=== PATIENT | male | born 1945 | race American Indian/Alaskan Native ===

== ENCOUNTER 2025-02-23 09:38 | Emergency (ER) | payer OTHER ==
[~2025-02-23] VITALS: Ht 172.7 cm; Wt 48.2 kg
[2025-02-23 09:51] LABS: MCH 30.9 PG (25.7-32.2); MCHC 33.6 g/dL (32.3-36.5); MCV 92.0 fL (79.0-92.2); RBC 3.98 M/uL (4.63-6.08)
[2025-02-23] MEDS ORDERED: SODIUM CHLORIDE 0.9% 500 ML IV PRN ×2 (10:00→10:30)
[2025-02-23 10:10] LABS: BANDS, MANUAL DIFF 12; LYMPHOCYTES, MANUAL DIFF 8; MONOCYTES, MANUAL DIFF 7; NEUTROPHILS, MANUAL DIFF 73
[2025-02-23 10:20] LABS: ALT (SGPT) 16.0 U/L (14-59); AST (SGOT) 25.0 U/L (15-37); GLOMERULAR FILTRATION RATE,EST 42.0 mL/min (>60); PROTEIN, TOTAL 7.2 g/dL (6.4-8.2); UREA NITROGEN 20.0 mg/dL (7-18)
[2025-02-23] MEDS ORDERED: HEParin SOD (PORCINE) 5,000 UNIT/ML SYR IV PRN ×3 (10:30)
[2025-02-23] MEDS ORDERED: HEPARIN SOD,PORK IN 0.45% NACL 500 ML IV SCH (10:30)
[2025-02-23] MEDS ORDERED: HEParin SOD (PORCINE) 5,000 UNIT/ML SYR IV ONE (10:30)
[2025-02-23 10:46] LABS: INR 1.17 (0.80-1.30); PROTIME 14.1 Sec (11.2-14.2)
[2025-02-23 11:11] LABS: ALCOHOL, MEDICAL <3 ng/dL (<3); TSH, 3RD GENERATION 1.213 uIU/mL (0.358-3.740)
[2025-02-23] MEDS ORDERED: ASPIRIN325 MG PO (11:30)
[2025-02-23] MEDS ORDERED: HYDROCHLOROTH12.5 M1 PO (11:31)
[2025-02-23] MEDS ORDERED: LISINOPRIL20 MG PO (11:31)
[2025-02-23] MEDS ORDERED: VITAMIN D350 MC4 PO (11:32)
[2025-02-23 13:12] VITALS: BP 88/59
--- NOTE | 2025-02-24 20:59 | EKG ---
[facility] [address] [facility] [place] [address] Signed Atrial fibrillation with rapid ventricular response with premature ventricular or aberrantly conducted complexes Nonspecific ST abnormality Abnormal QRS-T angle, consider primary T wave abnormality Abnormal ECG No previous ECGs available Confirmed by Stu Abdullahi MD () on 02/24/2025 8:59:18 PM Electronically Signed By: STU ABDULLAHI MD 02/24/252058 PATIENT NAME: LILA MARIE Electrocardiogram DATE OF : 49 PHYSICIAN: STU ABDULLAHI MD REPORT #: [id number] REPORT IS CONFIDENTIAL AND NOT TO BE RELEASED WITHOUT AUTHORIZATION
--- NOTE | 2025-02-24 21:00 | EKG ---
[facility] [address] [facility] [place] [address] Signed Normal sinus rhythm Rightward axis Borderline ECG When compared with ECG of 23-FEB-2025 09:56, Sinus rhythm has replaced Atrial fibrillation Vent. rate has decreased BY 72 BPM Non-specific change in ST segment in Inferior leads ST no longer depressed in Lateral leads Nonspecific T wave abnormality has replaced inverted T waves in Inferior leads Confirmed by Stu Abdullahi MD () on 02/24/2025 8:59:46 PM Electronically Signed By: STU ABDULLAHI MD 02/24/252099 PATIENT NAME: LILA MARIE Electrocardiogram DATE OF : 49 PHYSICIAN: STU ABDULLAHI MD REPORT #: [id number] REPORT IS CONFIDENTIAL AND NOT TO BE RELEASED WITHOUT AUTHORIZATION
== END 2025-02-23 13:15 | disposition short-term general hospital (02) ==
LOC: ED 09:38
PROVIDERS: Emergency Medicine
DX: I48.91 Unspecified atrial fibrillation (principal); I50.9 Heart failure, unspecified; Z79.82 Long term (current) use of aspirin; Z79.899 Other long term (current) drug therapy
CPT/HCPCS: 36415; 71045; 80053; 80307; 82803; 83880; 84439; 84443; 84484; 85025; 85610; 85730; 93005; 93010; 96374; 96375; 99285-25; G0480; J1644; J7040